=== PATIENT | male | born 1960 | race Caucasian/White ===

== ENCOUNTER 2019-01-04 13:59 | Day surgery (SDC) | payer OTHER ==
[~2019-01-04] VITALS: Ht 180.3 cm; Wt 84.9 kg
[~2019-01-04 13:59] MED LIST: ATIVAN; FAMOTIDINE; FLUTICASONE; GLIPIZIDE; IBUPROFEN; METFORMIN; PROMETHAZINE; RISPERIDONE; SIMVASTATIN; TEMAZEPAM; TOPOMAX; TRAMADOL; VIT D2
[2019-01-04 15:12] VITALS: Ht 180.3 cm; Wt 84.9 kg
[2019-01-04 15:52] VITALS: BP 125/71; PULSE 75; RESP 16
[2019-01-04 18:04] VITALS: BP 126/87; PULSE 64; RESP 24
[2019-01-04 18:19] VITALS: BP 156/108; PULSE 70; RESP 22
== END 2019-01-04 18:40 | disposition home or self-care (01) ==
LOC: GIL 13:59
PROVIDERS: ATTEND Internal Medicine Gastroenterology
DX: Z12.11 Encounter for screening for malignant neoplasm of colon (principal); D12.5 Benign neoplasm of sigmoid colon; E11.9 Type 2 diabetes mellitus without complications; Z79.84 Long term (current) use of oral hypoglycemic drugs; F17.200 Nicotine dependence, unspecified, uncomplicated
CPT/HCPCS: 45380; 82962; 88305; Z7610